=== PATIENT | male | born 1950 | race Hispanic/Latino ===

== ENCOUNTER 2022-03-30 18:19 | Emergency (ER) | payer OTHER, MEDICARE ==
[~2022-03-30] VITALS: Ht 167.6 cm; Wt 61.2 kg
[~2022-03-30 18:19] MED LIST: ALPRAZOLAM0.25 MG PO; HYDROMORPHONE HC2 MG PO; LYRICA75 MG PO; METFORMIN HCL500 M2 PO; OXYCONTIN10 MG
[2022-03-30] MEDS ORDERED: NAPROSYN500 MG PO (20:40)
[2022-03-30 20:50] VITALS: BP 128/70
== END 2022-03-30 20:50 | disposition home or self-care (01) ==
LOC: FSED 18:42
DX: S20.211A Contusion of right front wall of thorax, initial encounter (principal); W01.0XXA Fall on same level from slipping, tripping and stumbling without subsequent striking against object, initial encounter; Y93.01 Activity, walking, marching and hiking; Y92.008 Other place in unspecified non-institutional (private) residence as the place of occurrence of the external cause; E11.9 Type 2 diabetes mellitus without complications; G89.29 Other chronic pain; F17.210 Nicotine dependence, cigarettes, uncomplicated
CPT/HCPCS: 71101; 99283